=== PATIENT | male | born 1950 | race Caucasian/White ===

== ENCOUNTER 2017-07-07 11:22 | Emergency (ER) | payer MEDICARE ==
[~2017-07-07] VITALS: Ht 162.6 cm; Wt 59.0 kg
[~2017-07-07 11:22] MED LIST: ALBU8.5H8 IH; ASPI-1071 PO; ATEN100T PO; ATOR10TA87 PO; CHOL10008 PO; CYCL-1 PO; DULO60CA64 PO; METF500T4 PO; MIRT30TA8 PO; MULT1TAB74 PO; OMEP20CA10 PO; PER5325T PO; SENN1TAB89 PO; TEMA30CA PO; TERA1CAP4 PO; TICA90TA PO; VITA1TAB20 PO; VITA400C19 PO; VITC500T PO
[2017-07-07] MEDS ORDERED: TETanus/Pertussis (Acell)/Diphther VAC/PF (Tdap-Adult) 0.5ml syringe IMVAC ONE (12:50)
[2017-07-07] MEDS ORDERED: traMADol 50MG tablet PO ONE (12:50)
[2017-07-07] MEDS ORDERED: AMOX-580 PO (12:53)
[2017-07-07 13:00] VITALS: BP 150/84
== END 2017-07-07 13:59 | disposition home or self-care (01) ==
LOC: ER 11:24
DX: S61.451A Open bite of right hand, initial encounter (principal); L03.113 Cellulitis of right upper limb; F17.200 Nicotine dependence, unspecified, uncomplicated; F12.10 Cannabis abuse, uncomplicated; E78.00 Pure hypercholesterolemia, unspecified; I10 Essential (primary) hypertension; M19.90 Unspecified osteoarthritis, unspecified site; M10.9 Gout, unspecified; Z95.1 Presence of aortocoronary bypass graft; Z88.8 Allergy status to other drugs, medicaments and biological substances; Z88.6 Allergy status to analgesic agent; Z79.82 Long term (current) use of aspirin; Z79.899 Other long term (current) drug therapy; W55.01XA Bitten by cat, initial encounter; Y93.89 Activity, other specified; Y92.89 Other specified places as the place of occurrence of the external cause; Y99.9 Unspecified external cause status
CPT/HCPCS: 90471; 90715; 99283

== ENCOUNTER 2018-09-27 10:52 | Emergency (ER) | payer MEDICARE ==
[~2018-09-27] VITALS: Ht 162.6 cm; Wt 55.0 kg
[~2018-09-27 10:52] MED LIST changes: +METF-950 PO; -METF500T4 PO; -OMEP20CA10 PO; +OMEP20CA11 PO; +SENN-166 PO; -SENN1TAB89 PO
--- NOTE | 2018-09-27 11:13 | NUR ---
PT. AT CT WITH LATHE MACHINIST VIA W/C
--- NOTE | 2018-09-27 11:41 | NUR ---
BESSEMER BOTTOM MAKER AT BEDSIDE, DR VELAZQUEZ AT BEDSIDE TO ASSESS SHOULDER.
[2018-09-27] MEDS ORDERED: propofol 10mg/ml 20ml vial IV ONE (11:45)
[2018-09-27] MEDS ORDERED: ketorolac tromethamine 15mg/ml inj. IV ONE (11:45)
[2018-09-27] MEDS ORDERED: fentaNYL/PF 50MCG/1 ML 2ML syringe IV ONE (11:45)
[2018-09-27] MEDS ORDERED: ondansetron/PF 4mg/2ml inj IV ONE (11:45)
--- NOTE | 2018-09-27 11:46 | NUR ---
DR VELAZQUEZ INFORMED PATIENT HE HAS A DISLOCATED LEFT SHOULDER THAT NEEDS TO BE PUT BACK IN PLACE, MODERATE SEDATION PROCEDURE EXPLAINED TO PATIENT BY , ALL QUESTIONS AND CONCERNS ADDRESSED, PATIENT CONSENTS TO PROCEDURE, SPOKE WITH HIS MOTHER WHO CAN GUN REPAIR CLERK PATIENT ONCE DISCHARGE IS ORDERED.
[2018-09-27] MEDS ORDERED: morphine 4 MG/ML inj SYRINge IV ONE (14:15)
[2018-09-27] MEDS ORDERED: HYDR-3965 PO (14:32)
[2018-09-27 15:20] VITALS: BP 155/83
== END 2018-09-27 15:23 | disposition home or self-care (01) ==
LOC: ER 10:52
DX: S43.085A Other dislocation of left shoulder joint, initial encounter (principal); F12.90 Cannabis use, unspecified, uncomplicated; E78.00 Pure hypercholesterolemia, unspecified; I10 Essential (primary) hypertension; M19.90 Unspecified osteoarthritis, unspecified site; M10.9 Gout, unspecified; Z95.1 Presence of aortocoronary bypass graft; Z88.8 Allergy status to other drugs, medicaments and biological substances; Z88.6 Allergy status to analgesic agent; Z79.82 Long term (current) use of aspirin; Z79.899 Other long term (current) drug therapy; W18.49XA Other slipping, tripping and stumbling without falling, initial encounter; Y93.89 Activity, other specified; Y92.89 Other specified places as the place of occurrence of the external cause; Y99.9 Unspecified external cause status
CPT/HCPCS: 23650; 36415; 70450; 71045; 72125; 73020; 84484; 93005; 96374; 96375; 99285; J1885; J2270; J2405; J2704; J3010